=== PATIENT | male | born 1930 | race Caucasian/White ===

== ENCOUNTER 2020-07-10 17:51 | Inpatient (IN) | payer OTHER ==
[~2020-07-10] VITALS: Ht 170.2 cm; Wt 95.9 kg
[2020-07-10 20:38] VITALS: BP 149/79
[2020-07-10 23:32] VITALS: BP 142/55
[2020-07-10] MEDS ORDERED: DULOXETINE HCL20 MG PO (23:38)
[2020-07-10] MEDS ORDERED: FUROSEMIDE 80 M80 M1 PO (23:39)
[2020-07-10] MEDS ORDERED: LIPITOR 40 MG T40 M1 PO (23:40)
[2020-07-10] MEDS ORDERED: BUSPIRONE HCL7.5 MG (23:40)
[2020-07-10] MEDS ORDERED: PROTONIX40 M2 PO (23:41)
[2020-07-10] MEDS ORDERED: PRINIVIL20 MG PO (23:45)
[2020-07-10] MEDS ORDERED: ASA81BEC PO (23:52)
[2020-07-10] MEDS ORDERED: CARVEDILOL12.5 MG PO (23:53)
[2020-07-10] MEDS ORDERED: IRON325 M1 PO (23:54)
[2020-07-10] MEDS ORDERED: IMDUR 30 MG TAB30 M1 PO (23:56)
[2020-07-10] MEDS ORDERED: XARELTO15 MG PO (23:56)
[2020-07-10] MEDS ORDERED: SYMBICORT160 MCG/4. INH (23:58)
[2020-07-11 03:31] LABS: HEMATOCRIT 25.1 % (42.0-52.0); HEMOGLOBIN 7.6 gm/dL (14.0-18.0); MCH 24.2 pg (26.0-34.0); MCHC 30.1 g/dL (28.0-37.0); MCV 80.6 fL (80.0-100.0); RBC 3.11 mil/uL (4.50-6.00); RDW 19.6 % (10.5-14.5); WBC 8.5 thou/uL (4.0-11.0)
[2020-07-11 03:34] LABS: CALCIUM 8.4 mg/dL (8.5-10.1); CREATININE 1.4 mg/dL (0.7-1.3); POTASSIUM 3.2 mmol/L (3.5-5.1)
[2020-07-11 04:00] VITALS: BP 144/63
--- NOTE | 2020-07-11 04:58 | NUR ---
ASSESSMENTS CHARTED, MEDS CHARTED GIVEN. PATIENT ARRIVED A DIRECT ADMISSION FROM [facility] WITH A GI BLEED AND ANEMIA. PATIENT WAS SETTLED INTO HIS ROOM, ADMITTED INTO THE COMPUTER SYSTEM THEN ALLOWED TO SLEEP. PLACED ON MAINTENANCE FLUIDS AND A PROTONIX DRIP. NPO SINCE MIDNIGHT. DENIED PAIN. PLACED ON FALL PRECAUTIONS DUE TO RECENT FALLS. PATIENT IS VERY HARD OF HEARING, HEARING AIDES DO NOT HAVE WORKING BATTERIES. PATIENT REQUESTS NOT TO SIGN PAPERS UNTIL HIS GETS HERE IN THE AM.
[2020-07-11 07:14] VITALS: BP 135/66
[2020-07-11 11:06] VITALS: BP 145/78
--- NOTE | 2020-07-11 13:44 | NUR ---
PT IS AXOX4, UPPER [place], PLEASANT. VSS, AFEBRILE, AFIB ON MONITOR. PT FAMILY AT THE BEDSIDE. RAPID COVID SWAB DONE; RESULTS NEGATIVE. PT HAD EGD SCOPE 07/11/20. POC IS FOR PT TO COMPLETE BOWEL PREP THIS PM WITH PLAN OF COLONOSCOPY 07/12/20. PT IS HIGH FALL RISK. FALL PRECAUTIONS IN PLACE. FREQUENT ROUNDING.
[2020-07-11 15:04] VITALS: BP 141/72
[2020-07-11 19:18] VITALS: BP 142/61
[2020-07-12] VITALS (8 sets, daily range): BP systolic 113–141; BP diastolic 44–74
--- NOTE | 2020-07-12 07:19 | NUR ---
0600 SLEPT PART OF SHIFT. BOWEL PREP COMPLETED BY 2330 LAST NOC. STOOL THIS AM LIQUID BROWN NOT CLEAR. DR. COLIN NOTIFIED AND 500 CC TAP WATER ENEMA GIVEN. WILL CONTINUE TO ASSES. PLAN FOR COLONOSCOPY TODAY. REMAINS AT BEDSIDE THROUGHOUT NOC. DENIES COMPLAINTS OF PAIN OR NEED FOR BREATHING TREATMENT. CONTINUE TO ASSES. ASSIST UP TO COMODE NEEDED.
--- NOTE | 2020-07-12 10:46 | NUR ---
PT IS AXOX4, PLEASANT. AT THE BEDSIDE. VSS, AFEBRILE, AFIB WITH PVCs ON MONITOR. PT COMPLETED BOWEL PREP THIS AM FOR COLONOSCOPY THIS AM. PT NPO SINCE MIDNIGHT. GI TO COMPLETE A PILL CAM FOR RULE OUT. POC IS TO CONTINUE PROTONIX, VS; RX COREG. FALL PRECAUTIONS IN PLACE. FREQUENT ROUNDING.
[2020-07-12 11:19] LABS: HEMATOCRIT 24.3 % (42.0-52.0); HEMOGLOBIN 7.2 gm/dL (14.0-18.0); MCH 24.2 pg (26.0-34.0); MCHC 29.7 g/dL (28.0-37.0); MCV 81.3 fL (80.0-100.0); RBC 2.99 mil/uL (4.50-6.00); RDW 20.3 % (10.5-14.5); WBC 7.5 thou/uL (4.0-11.0)
[2020-07-12 17:09] LABS: ABSOLUTE NEUTROPHILS 6.1 thou/uL (1.4-8.2); BASOPHILS 0.4 % (0.0-2.0); EOSINOPHILS 1.4 % (0.0-3.0); MCV 80.1 fL (80.0-100.0)
[2020-07-12 17:10] LABS: HEMATOCRIT 23.1 % (42.0-52.0); LYMPHOCYTES 4.5 % (24.0-44.0); MCH 24.4 pg (26.0-34.0); MCHC 30.5 g/dL (28.0-37.0); MONOCYTES 10.1 % (1.0-8.0); PLATELET COUNT 130 thou/uL (150-400); POLYS 83.6 % (36.0-66.0); RBC 2.88 mil/uL (4.50-6.00); RDW 20.4 % (10.5-14.5); WBC 7.3 thou/uL (4.0-11.0)
[2020-07-13] VITALS (8 sets, daily range): BP systolic 112–147; BP diastolic 47–75
[2020-07-13 04:17] LABS: HEMATOCRIT 24.5 % (42.0-52.0); HEMOGLOBIN 7.4 gm/dL (14.0-18.0); MCH 24.6 pg (26.0-34.0); MCHC 30.2 g/dL (28.0-37.0); MCV 81.7 fL (80.0-100.0); RBC 2.99 mil/uL (4.50-6.00); WBC 7.5 thou/uL (4.0-11.0)
[2020-07-13 04:34] LABS: ALBUMIN 2.5 g/dL (3.4-5.0); CREATININE 1.3 mg/dL (0.7-1.3); MAGNESIUM 1.9 mg/dL (1.8-2.4); POTASSIUM 3.7 mmol/L (3.5-5.1); TOTAL BILIRUBIN 1.1 mg/dL (0.2-1.0); TOTAL PROTEIN 5.4 g/dL (6.4-8.2)
--- NOTE | 2020-07-13 06:31 | NUR ---
SLEPT MOST OF SHIFT WITH AT BEDSIDE. ONE UNIT OF BLOOD GIVEN THIS SHIFT. NO VISIBLE SIGNS OF BLEEDING IN STOOL. STATES INSIDE OF ABDOMAN IS SORE AND ITS FROM THE GI TEST YESTERDAY. DENIES NEED FOR PAIN MEDICATION. ENCOURAGED TO CALL IF HE DECIDES HE WANTS PAIN MEDICATION TO CALL. ASSIST UP TO VOID NEEDED. PATIENT HOPES TO GO HOME TODAY. CONTINUE TO ASSES LORIN.
--- NOTE | 2020-07-13 14:33 | NUR ---
met with patient and at bedside. Patient resides at home with spous in [facility]. All needs on one level. Apprpx 2 steps to enter. Patient does not use assistive device. 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 Patient has home oxygen with [employer] us[employer] at 3 liters at home. Sp with Physical therapy who reports could benefit from HH care but patient does not want at this time. Discussed HH care. familiar with HH as she has had in past. She reports they do not need at home. She reports if they change their mind or determine they need they will contact their primary care phys. Gave list of HH agencies that service the area and blue book resource book. Casemgt following for dc planning.
[2020-07-13 16:13] LABS: HEMATOCRIT 29.2 % (42.0-52.0); HEMOGLOBIN 8.9 gm/dL (14.0-18.0)
--- NOTE | 2020-07-13 16:43 | NUR ---
Per family prefer dc this evening. Report agreeable to home health care. Patient anxious to go home. Patients dtr is RN at PCP office. Patients granddtr an RN. Discussed with phys who is agreeable to dc home today with HH care. given list of HH agencies and prefers [facility] as used in past. Sp with Candice at [facility] and she rec faxed referral. She reports they need to get authorization prior to visit. She reports will review information and f/u with family. Updated RN no further needs.
--- NOTE | 2020-07-13 18:06 | NUR ---
1800 PATIENT DISCHARGES FROM [facility]. PATIENT AND PATIENT SPOUSE RECIEVED EDUCATION ABOUT PLAN AFTER HOSPITALIZATION. PATIENT AND SPOUSE OCCOMPANIED BY THE [facility] FOR TRANSPORTATION. PATIENT AND SPOUSE LEFT VIA WHEELCHIAR. ALL BELONGINGS SENT HOME WITH PATIENT.
--- NOTE | 2020-07-17 08:09 | HC ---
[facility] [address] CONSULTATION Name: DON SPRINGER Room #: 211-P [facility] IN M.R.#: [id number] Admission: 07/10/20 Attend Phys: Jamel Bundy MD Discharge: 07/13/20 Date of : 12/30/30 Report #: [id number] THIS REPORT FOR: cc: Naheed Alaniz MD, Jayne MD McElhinney,Kody Hagan MD ~ DOC #: [id number] cc: MD Kody Lima MD DATE OF SERVICE: 07/11/2020 HISTORY OF PRESENT ILLNESS: The patient is an 89-year-old male who was transferred from [facility] for GI bleed. He is on Xarelto for atrial fibrillation. He has a history of anemia, hypertension, gastroesophageal reflux disease. He is on oxygen 2 liters nasal cannula. He is on PPI therapy. His hemoglobin was 7.5 on admission is after 2 units at [facility], today is 7.6. His anticoagulation has been held. He denies any abdominal pain. He has been having melanotic type stools for several months apparently. He denies any nausea, vomiting, or hematemesis. Currently, denies any chest pain or shortness of breath. He had a syncopal episode yesterday. He was noted to be hypotensive at [facility]. Hemoglobin there was 6.0. Stool was Hemoccult positive. PAST MEDICAL HISTORY: Chronic renal insufficiency, COPD, O2 dependent, congestive heart failure, hyperlipidemia, hypertension, depression, history of cardiac stent placement, gastroesophageal reflux disease, history of anemia. REVIEW OF SYSTEMS: As per HPI. FAMILY HISTORY: Negative for colon cancer. SOCIAL HISTORY: Denies any tobacco or alcohol use at this time. CURRENT MEDICATIONS: Duloxetine; Lipitor; lisinopril; Coreg; Eliquis and aspirin have been held; budesonide inhaler; albuterol inhaler; Protonix, he is on a Protonix drip at this time; V fluids; Zofran p.r.n.; Tylenol p.r.n. PHYSICAL EXAMINATION: VITAL SIGNS: Temperature is 36.7, pulse is 70, blood pressure is 145/78, respiratory rate 16. GENERAL: He is alert and oriented x3 in no acute distress. HEENT: Decreased hearing bilaterally. Sclerae nonicteric. Oropharynx is clear. He is wearing nasal cannula oxygen. CARDIOVASCULAR: Regular rate. CHEST: With decreased breath sounds bilaterally. ABDOMEN: Soft, nontender, nondistended. Normoactive bowel sounds. [address] [address] CONSULTATION Name: DON SPRINGER Room #: [facility]-P [facility] IN M.R.#: [id number] Admission: 07/10/20 Attend Phys: Jamel Bundy MD Discharge: 07/13/20 Date of : 12/30/30 Report #: [id number] EXTREMITIES: Trace edema of the lower extremities bilaterally. LABORATORY DATA: WBC is 8.5, hemoglobin 7.6, platelet count is 153. Sodium 149, potassium 3.2, chloride 109, bicarbonate 29, BUN 20, creatinine 1.4, glucose 109, calcium 8.4, magnesium 2.0. COVID test is negative today. ASSESSMENT AND PLAN: Anemia, gastrointestinal bleed. The patient with melanotic stools, underwent a transfusion of 2 units of packed cells yesterday. Anticoagulation meds have been held. We would recommend proceeding with an upper endoscopy today for further evaluation. Agree with Protonix drip, which has already been started. We will make further recommendations after endoscopy. Thank you for allowing me to participate in his care. Kody Fontana MD [facility] <ELECTRONICALLY SIGNED> By: Kody Fontana MD 07/17/20 0809 [id number] [id number] Kody Fontana MD /sandi
--- NOTE | 2020-07-17 08:09 | P ---
[facility] [place] [address] PROCEDURE REPORT Name: DON SPRINGER Room #: 211-P [facility] IN M.R.#: [id number] Admission: 07/10/20 Attend Phys: Jamel Bundy MD Discharge: 07/13/20 Date of : 12/30/30 Report #: [id number] THIS REPORT FOR: cc: Naheed Alaniz MD, Jayne MD McElhinney,Kody Hagan MD ~ DOC #: [id number] cc: MD Kody Lima MD DATE OF SERVICE: 07/11/2020 PROCEDURE PERFORMED: Upper endoscopy with bleeding control. HISTORY OF PRESENT ILLNESS: The patient is an 89-year-old male with a history of anemia, near syncopal episode, melanotic type stools, intermittent abdominal discomfort. He has been having dark stools for several months. He was on Xarelto as well as aspirin for history of atrial fibrillation. He is also on PPI therapy. Hemoglobin on admission at [facility] was 6.0. He is transfused 2 units of packed cells. Hemoglobin now at this time is 7.6. Plan is for upper endoscopy. DESCRIPTION OF PROCEDURE: The risks and benefits of the procedure were explained to the patient and his family, those risks including but not limited to bleeding, perforation and the risk of sedation. They understood these risks and gave informed consent. Sedation was given using propofol per anesthesia. Next, using a standard Olympus upper endoscope, the scope was placed in the patient's mouth and advanced under direct vision through the esophagus, stomach and into the third portion of the duodenum. The esophagus was normal throughout. The GE junction was normal. In the stomach, a small erythematous area was noted in the gastric body. This may be a possible AVM. I treated this with a 7-Jamaican bipolar cautery. No evidence of bleeding after cauterization. Otherwise, normal gastric mucosa. No evidence of blood. No evidence of ulcerations or erosions. The pylorus was normal and patent. The duodenal bulb was normal as well as the first portion and the second portion of the duodenum, a single 3 mm nonbleeding AVM was noted. This was also cauterized with bipolar cautery. No evidence of bleeding after cauterization. I advanced the scope as far as possible into the third portion of the duodenum, which was normal. Again, no evidence of blood was seen throughout the exam today. The scope was then withdrawn and the procedure terminated. The patient tolerated the procedure well. IMPRESSION: 1. Nonbleeding duodenal AVM, status post cautery. 2. Possible small gastric AVM also status post cautery. 3. Otherwise, normal upper endoscopy, no evidence of bleeding on exam [address] [address] PROCEDURE REPORT Name: DON SPRINGER Room #: 211-P [facility] IN M.R.#: [id number] Admission: 07/10/20 Attend Phys: Jamel Bundy MD Discharge: 07/13/20 Date of : 12/30/30 Report #: [id number] throughout the exam today. RECOMMENDATIONS: 1. Continue PPI therapy. 2. I would recommend proceeding with a colonoscopy tomorrow as there is no significant stigmata of recent bleeding on upper endoscopy today. In speaking with the family, his last colonoscopy was probably 5-10 years ago. He has been having difficulty with bowel movements and abdominal pain as well. We will continue to hold his anticoagulation therapy. We will plan on prepping today for colonoscopy tomorrow. Thank you for allowing me to participate in his care. Kody Fontana MD [facility]SE <ELECTRONICALLY SIGNED> By: Kody Fontana MD 07/17/20 0809 [id number] 2134 Kody Fontana MD /nt
--- NOTE | 2020-07-17 08:09 | P ---
[facility] [place] [address] PROCEDURE REPORT Name: DON SPRINGER Room #: 211-P [facility] IN M.R.#: [id number] Admission: 07/10/20 Attend Phys: Jamel Bundy MD Discharge: 07/13/20 Date of : 12/30/30 Report #: [id number] THIS REPORT FOR: cc: Naheed Alaniz MD, Jayne MD McElhinney,Kody Hagan MD ~ DOC #: [id number] cc: Dr. Naheed Alaniz, Jamel Bundy MD, Dr. Salvador Fontana MD PROCEDURE PERFORMED: Colonoscopy with biopsies. HISTORY OF PRESENT ILLNESS: The patient is an 89-year-old male with a history of GI bleeding and anemia, who was having melanotic type stools. He has received 2 units of packed cells, hemoglobin was 7.5 yesterday. Upper endoscopy was performed yesterday showing 2 nonbleeding AVMs, one in the gastric body, the other in the duodenum. Both were cauterized with bipolar cautery, otherwise normal. There was no evidence of blood throughout the exam. Plan therefore is for colonoscopy today. Last colonoscopy was probably approximately 10 years ago. He does report some intermittent abdominal pain. No family history of colon cancer. The patient was on Xarelto and aspirin, which have been held. DESCRIPTION OF PROCEDURE: The risks and benefits of the procedure were explained to the patient, those risks including but not limited to bleeding, perforation and the risk of sedation. He understood these risks and gave informed consent. Sedation was given using propofol per anesthesia. Next, a digital rectal exam was initially performed, which was normal. Next, using a standard Olympus colonoscope, the scope was placed in the patient's anus and advanced under direct vision to the cecum. The overall prep was good. In the cecum, there was a 4 mm sessile polyp. This was removed with cold forceps, otherwise normal. The ileocecal valve was normal. The terminal ileum was intubated and normal in appearance. In the ascending colon, a 3 mm sessile polyp was noted. This was also removed with cold forceps. The transverse and descending colon were normal. Multiple diverticula were noted throughout the sigmoid colon. No evidence of inflammation or stigmata of recent bleeding. The rectal mucosa was normal. On retroflexion, small nonbleeding internal hemorrhoids were noted. There was no evidence of blood throughout the exam today. The scope was then withdrawn and the procedure terminated. The patient tolerated the procedure well. IMPRESSION: 1. Two small colonic polyps. 2. Sigmoid diverticulosis without inflammation or signs of bleeding. 3. Small internal hemorrhoids, nonbleeding. 4. Otherwise, normal colonoscopy. [address] [address] PROCEDURE REPORT Name: DON SPRINGER Room #: 211-P [facility] IN M.R.#: [id number] Admission: 07/10/20 Attend Phys: Jamel Bundy MD Discharge: 07/13/20 Date of : 12/30/30 Report #: [id number] RECOMMENDATIONS: 1. Await biopsy results. 2. We will repeat hemoglobin today. 3. Continue to hold anticoagulation therapy. 4. We will discuss possibly proceeding with an M2 capsule endoscopy for further evaluation of the small bowel. Thank you for allowing me to participate in his care. Kody Fontana MD CCM/JADE/TIANNA <ELECTRONICALLY SIGNED> By: Kody Fontana MD 07/17/20 0809 [id number] Kody Fontana MD /nt
--- NOTE | 2020-07-20 13:52 | PATH ---
[facility] [place] [address] PATHOLOGY RPT PROCEDURE Name: DON SPRINGER Room #: 211-P [facility] IN M.R.#: [id number] Admission: 07/10/20 Date of : 12/30/30 Discharge: 07/13/20 Report #: [id number] Path Case #: [id number] [facility] Accession Number: [id number] . 01 Material submitted: . PART A: cecum - CECAL POLYP BIOPSY PART B: colon - ASCENDING COLON POLYP BIOPSY. Modifiers: ascending . 01 Clinical history: . COLONOSCOPY GI BLEED ANEMIA . 02 Diagnosis: A. Colonic mucosa, cecal polyp, biopsy: - Tubular adenoma. . B. Colonic mucosa, ascending colon polyp, biopsy: - Tubular adenoma. . (SCA:doug; 07/16/2020) MBR 07/16/2020 [facility]2 Local . 02 Electronically signed: . Aaron Winkler DO, Pathologist NPI- [id number] . 01 Gross description: . A. The specimen is received in formalin, labeled "Don Springer cecal polyp biopsy". Received are three segments of pale montes tissue ranging in size from 0.2-0.4 cm in maximum dimensions. The specimen is submitted entirely in cassette A1. . B. The specimen is received in formalin, labeled "Don Springer, ascending colon polyp biopsy". Received is a segment of pale montes tissue measuring 0.5 cm in maximum dimensions. The specimen is submitted entirely in cassette B1. (CAA; 07/14/2020) QAC/QAC 07/14/2020 1311 Local . 02 Pathologist provided ICD-10: D12.0, D12.2 . 02 CPT . 109466, 733468 Specimen Comment: A courtesy copy of this report has been sent to [phone], [place] [address] PATHOLOGY RPT PROCEDURE Name: DON SPRINGER Room #: 211-P [facility] IN M.R.#: [id number] Admission: 07/10/20 Date of : 12/30/30 Discharge: 07/13/20 Report #: [id number] Path Case #: [id number] Specimen Comment: [phone] Specimen Comment: Report sent to ,DR COLIN / DR SANZ Specimen Comment: A duplicate report has been generated due to demographic updates. Performed at: 01 [facility] [address] [id number] MD Eliseo Hart MD Phone: [phone] Performed at: 02 [facility] [id number] [id number] MD Rios Jones MD Phone: [phone]
== END 2020-07-13 18:19 | disposition home health service (06) | DRG 393 ==
LOC: 2N 17:51
PROVIDERS: Nurse Practitioner Family; Specialist; ADMIT Internal Medicine; ATTEND Internal Medicine
PROC: 0W3P8ZZ Control Bleeding in Gastrointestinal Tract, Via Natural or Artificial Opening Endoscopic (ICD-10-PCS; principal; 2020-07-11)
PROC: 0DBH8ZX Excision of Cecum, Via Natural or Artificial Opening Endoscopic, Diagnostic (ICD-10-PCS; 2020-07-12)
PROC: 30233N1 Transfusion of Nonautologous Red Blood Cells into Peripheral Vein, Percutaneous Approach (ICD-10-PCS; 2020-07-12)
PROC: 0DJ07ZZ Inspection of Upper Intestinal Tract, Via Natural or Artificial Opening (ICD-10-PCS; 2020-07-12)
PROC: 0DBK8ZX Excision of Ascending Colon, Via Natural or Artificial Opening Endoscopic, Diagnostic (ICD-10-PCS; 2020-07-12)
DX: D12.2 Benign neoplasm of ascending colon (principal); K55.21 Angiodysplasia of colon with hemorrhage; K57.31 Diverticulosis of large intestine without perforation or abscess with bleeding; D62 Acute posthemorrhagic anemia; I13.0 Hypertensive heart and chronic kidney disease with heart failure and stage 1 through stage 4 chronic kidney disease, or unspecified chronic kidney disease; I50.32 Chronic diastolic (congestive) heart failure; J96.11 Chronic respiratory failure with hypoxia; I48.20 Chronic atrial fibrillation, unspecified; D12.0 Benign neoplasm of cecum; K21.9 Gastro-esophageal reflux disease without esophagitis; E78.5 Hyperlipidemia, unspecified; N18.30 Chronic kidney disease, stage 3 unspecified; F32.9 Major depressive disorder, single episode, unspecified; K58.9 Irritable bowel syndrome, unspecified; J44.9 Chronic obstructive pulmonary disease, unspecified; R53.81 Other malaise; K64.8 Other hemorrhoids; Z20.822 Contact with and (suspected) exposure to COVID-19; Z95.5 Presence of coronary angioplasty implant and graft
CPT/HCPCS: 10081; 62110; 62900; 70005